=== PATIENT | female | born 1955 | race Caucasian/White ===

== ENCOUNTER 2020-02-20 02:44 | Emergency (ER) | payer OTHER ==
[~2020-02-20] VITALS: Ht 157.5 cm; Wt 85.3 kg
[2020-02-20] MEDS ORDERED: BENADRYL ALLERG25 MG (03:02)
[2020-02-20] MEDS ORDERED: ANTI-ITCH28 G1 (03:03)
[2020-02-20] MEDS ORDERED: DEXAMETHASONE4 MG (03:04)
[2020-02-20] MEDS ORDERED: PEPCID40 MG PO (07:34)
[2020-02-20] MEDS ORDERED: BETAMETHASONE D15 G2 TOP (07:35)
== END 2020-02-20 07:52 | disposition home or self-care (01) ==
LOC: ER 02:44
DX: L50.8 Other urticaria (principal)